=== PATIENT | female | born 1955 | race Caucasian/White ===

== ENCOUNTER 2019-08-02 18:08 | Inpatient (IN) | payer OTHER ==
[~2019-08-02 18:08] MED LIST: Iopamidol-370 76% 500 ML 1 ML ONE
--- NOTE | 2019-08-02 18:34 | RAD ---
XR Chest 1 View Portable History: Coughing up blood Comparison: None. Findings: Abnormal nodules throughout the lungs, largest in the right lower lobe. No pneumothorax. No effusion. Cardiac silhouette appears normal. The pulmonary arteries are dilated. No acute osseous abnormality. Impression: Multifocal nodules in the lungs concerning for metastatic disease. Septic emboli and conf luent pneumonia is also possibility, although felt slightly less likely. Nonemergent CT chest with contrast recommended.
[2019-08-02] MEDS ORDERED: Albuterol Sulfate 2.5 mg/0.5 ml Neb ONE (18:58)
[2019-08-02] MEDS ORDERED: Morphine 4 MG/ML VIAL ONE (19:29)
[2019-08-02 19:32] LABS: #Basophils 0.1 thou/uL (0.0-0.2); #Lymphocytes 1.6 thou/uL (1.20-3.40); #Monocytes 0.9 thou/uL (0.11-0.59); #Neutrophils 7.7 thou/uL (1.40-6.50); %Basophils 0.6 % (0.0-1.0); %Eosinophils 0.5 % (0.0-10.0); %Lymphocytes 15.8 % (21.0-51.0); %Monocytes 8.8 % (0.0-10.0); %Neutrophils 74.4 % (42.0-75.0); Hemoglobin 14.1 g/dL (12.0-16.0); Mean Corpuscular HGB CONC 33.7 g/dL (32.0-36.0); Mean Corpuscular Hemoglobin 31.9 pg (27.0-31.0); Mean Corpuscular Volume 94.8 fL (78.0-98.0); Mean Platelet Volume 10.1 fL (7.4-10.4); Platelet Count 125 thou/uL (130-400); RBC Distribution Width 12.1 % (11.5-14.5); Red Blood Cell (RBC) Count 4.43 mill/uL (4.20-5.40); White Blood Cell (WBC) Count 10.3 thou/uL (4.8-10.8)
[2019-08-02] MEDS ORDERED: diphenhydrAMINE 50 MG/ML VIAL ONE (20:34)
[2019-08-02] MEDS ORDERED: methylPREDNISolone Sod Succ/PF 125 MG/2 ML VIAL ONE (20:34)
[2019-08-02] MEDS ORDERED: Famotidine/PF 20 mg/2ml Vial ONE (20:34)
[2019-08-02 20:44] LABS: ALT (SGPT) 20 U/L (8-55); AST (SGOT) 12 U/L (5-34); Albumin 3.7 g/dL (3.4-4.8); Alkaline Phosphatase 70 U/L (40-110); Anion Gap 11 mmol/L (10-20); BUN (Urea Nitrogen) 8 mg/dL (9.8-20.1); Bilirubin, Total 0.8 mg/dL (0.2-1.2); Calc. Creatinine Clearance 0 mL/min (70-130); Calcium 8.4 mg/dL (7.8-10.44); Carbon Dioxide 24 mmol/L (23-31); Chloride 107 mmol/L (98-107); Estimated GFR-MDRD 80; Globulin 2.7 g/dL (2.4-3.5); Glucose 192 mg/dL (80-115); Potassium 3.7 mmol/L (3.5-5.1); Protein, Total 6.4 g/dL (6.0-8.3); Sodium 138 mmol/L (136-145)
--- NOTE | 2019-08-02 22:01 | CT ---
CT Neck Chest Abd Pelvis W Con History: Cough Comparison: Chest radiograph same day Findings: No abnormal mucosal hyperenhancement of the neck. Normal cervical spine alignment with mode rate degenerative changes. Mandible is intact. No cervical adenopathy. Parotid glands and submandibular glands are intact. Small supraclavicular lymph nodes. Multifocal consolidation which does not have as greatest confluenc e on the CT exam as it did on the radiograph. Aortic contour is nonaneurysmal. Liver, pancreas are unremarkable. There is probable cholelithiasis. Splenic size is upper limits of normal. No hydronephrosis. No dilated loops of large or small bowel. The appendix is visualized and is normal. No retroperitonea l periaortic adenopathy. No acute osseous abnormality. Sternum and manubrium are intact. No displaced rib fracture. Clavicles are intact. Impression: 1. No evidence for acute pharyngitis or peritonsillar abscess. 2. Findings of multifocal bronchopneumonia. Follow-up radiographs after treatment recommended. 3. No acute inflammatory process within the abdomen or pelvis. 4. Mild splenomegaly. 5. Small renal hypodensities too small to fully characterize although statistically likely cysts.
[2019-08-02] MEDS ORDERED: Cefepime 2 GM VIAL ONE (22:52)
[2019-08-02 23:05] LABS: Lactic Acid 1.2 mmol/L (0.5-2.2)
[2019-08-03] MEDS ORDERED: HYDROcodone/Acetaminophen 5/325 mg Tablet PO PRN ×2 (00:51)
[2019-08-03] MEDS ORDERED: Ondansetron ODT 4 MG TAB SL PRN (00:51)
[2019-08-03] MEDS ORDERED: Acetaminophen 325 MG TAB PO PRN (00:51)
[2019-08-03] MEDS ORDERED: Sodium Chloride 0.9% 1,000 ML IV SCH (00:51)
[2019-08-03] MEDS ORDERED: Ondansetron PF 4 MG/2 ML Vial IVP PRN (00:51)
[2019-08-03] MEDS ORDERED: Morphine 4 MG/ML VIAL SLOW IVP PRN (00:53)
[2019-08-03 01:08] VITALS: BMI 37.3
[2019-08-03] MEDS ORDERED: Dextrose 50% Abboject 50 ML SYRINGE IVP PRN (08:14)
[2019-08-03] MEDS ORDERED: Ondansetron PF 4 MG/2 ML Vial SLOW IVP PRN (08:14)
[2019-08-03] MEDS ORDERED: Dextrose 5% in Water 1,000 ML IV PRN (08:14)
[2019-08-03] MEDS ORDERED: Zolpidem Tartrate 5 MG TAB PO PRN (08:20)
[2019-08-03] MEDS ORDERED: Levothyroxine Sodium 100 MCG TAB PO ONE (08:30)
[2019-08-03] MEDS ORDERED: Cefepime 2 GM in Sodium Chloride 0.9% 100 ML IVPB SCH (09:00)
--- NOTE | 2019-08-03 09:14 | HP ---
CHIEF COMPLAINT ON ADMISSION: Multifocal pneumonia. HISTORY OF PRESENT ILLNESS: The patient is a 64-year-old female, who states that for approximately 4 days, she has had increasing cough, it became productive in the last 24 hours, producing bloody phlegm. She also had sore throat, ear pain, and headache associated with this. The symptoms steadily worsened until finally she came to the emergency room on the day of admission. When she walked in the ER, her pain was rated at 7/10. Her chest x-ray initially showed what might have been metastatic disease, but a CT scan was then followed up, which clarified that this was indeed just a multifocal bronchopneumonia without any inflammatory process. There was mild splenomegaly noted. A small renal hypodensities that appeared to be cysts, otherwise unremarkable for metastatic disease. The patient had blood cultures taken. IV antibiotics begun, and Dr. Lutz was contacted for admission. PAST MEDICAL HISTORY: Includes [id number] diabetes mellitus, hypertension, dyslipidemia, hypothyroidism, and osteopenia. PAST SURGICAL HISTORY: Includes section x3 and hysterectomy. PSYCHIATRIC HISTORY: Has been significant for depression in the past. SOCIAL HISTORY: She is . Does not smoke or have any significant alcohol or drug abuse history. ALLERGIES: SHE IS ALLERGIC TO IODINE AND PENICILLINS. MEDICATIONS: On admission include; 1. Fosamax 70 mg weekly. 2. Amlodipine/benazepril 10/20 once a day. 3. Aspirin 81 mg enteric-coated daily. 4. Estradiol 1 mg daily. 5. Glyburide 5 mg b.i.d. 6. Metformin 1000 mg b.i.d. 7. Crestor 10 mg at bedtime. 8. Zoloft 100 mg daily. 9. Synthroid 100 mcg daily. REVIEW OF SYSTEMS: CONSTITUTIONAL: She admits to fever, chills, cough, and malaise. HEENT: She has had severe ear pain with head congestion and drainage and headache. CHEST: Significant for dyspnea and cough. CARDIOVASCULAR: Denies palpitations or chest pain per se. ABDOMEN: Denies nausea, vomiting, or diarrhea. GENITOURINARY: Denies blood in urine or stool or painful urination, frequency, or urgency. MUSCULOSKELETAL: Has general aches and pains, but no new areas of heat, erythema, joint pain, or muscle pain. SKIN: No new rashes or lesions. NEUROLOGIC: Significant for headaches, but denies blurred vision, trouble with mentation. PSYCHIATRICAL: Denies any active ongoing depression at this time. PHYSICAL EXAMINATION: VITAL SIGNS: At the time of admission, blood pressure 156/67, pulse 114, temperature 99.7, respirations 20, pain scale 7/10, and O2 saturation 95% on room air. GENERAL: This is an obese female, alert, oriented, and cooperative. HEENT: Normocephalic, atraumatic. Pupils are equal, round, and reactive to light. Extraocular muscles are intact. Nares and pharynx are clear. NECK: Supple. Trachea midline. CHEST: With basilar rales on the right. Left is clear. HEART: Regular rate and rhythm without murmur. BREASTS: Deferred. ABDOMEN: Soft, nontender without hepatosplenomegaly. GENITOURINARY: Deferred. EXTREMITIES: Without clubbing, cyanosis, or edema. Normal range of motion present. Symmetrical muscular tone development noted. SKIN: Without significant lesions. NEUROLOGIC: Cranial nerves are intact. Sensory exam is grossly intact. Mental status is nonfocal. Gait and cerebellar function untested at this time. LABORATORY DATA: Lab work thus far shows WBCs at 10.3, hemoglobin 14.1 with hematocrit 42, and platelets at 125. Her sodium is 138, potassium 3.7, chloride 107, CO2 of 24, BUN 8, and creatinine 0.73 with GFR of 80. Glucose at that time was 192. Lactic acid has gone from 2.8 down to 1.2. Calcium 8.4. Liver functions normal. Troponins unremarkable. Urinalysis is pending. IMAGING DATA: Chest x-ray concerning for multifocal and metastatic disease. CT scan clarified that it is bronchopneumonia without any sign of metastatic illness. ASSESSMENT: 1. Bronchopneumonia. 2. Tqm-uhtwjzr-xegaomhrv diabetes. 3. Hypertension. PLAN: Will be continued IV therapy, scheduled neb treatments, mucolytics, sliding-scale insulin to cover any elevations what her routine medications deliver. Serial re-evaluation and because she is placed in IMCU for the multifocal pneumonia and Pulmonology consult is automatic. Job ID: [id number]
[2019-08-03] MEDS: Aspirin 81 mg Enteric Coated Tablet PO SCH (09:40)
[2019-08-03] MEDS: guaiFENesin ER 600 MG TAB PO SCH ×2 (09:40→21:08)
[2019-08-03] MEDS: Estradiol 1 MG TAB PO SCH (09:41)
[2019-08-03] MEDS: Lisinopril 20 MG TAB PO SCH (09:41)
[2019-08-03] MEDS: Amlodipine 10 MG TAB PO SCH (09:41)
[2019-08-03] MEDS ORDERED: predniSONE 20 MG TAB PO SCH (13:15)
--- NOTE | 2019-08-03 13:53 | CON ---
DATE OF CONSULTATION: 08/03/2019 SERVICE: Pulmonary Medicine. REASON FOR CONSULTATION: Respiratory failure. HISTORY OF PRESENT ILLNESS: The patient is a 64-year-old white female with past medical history significant for essentially nothing. She was in her usual state of health until Wednesday of last week. Over the last 5 days, she suffered a viral prodrome. She indicates having an achy muscles in the shoulders, cough, congestion, horrendous sore throat, a little bit of white to pale yellow phlegm, low-grade temperatures, chills, myalgia, and shaking chills. Ultimately, as the symptoms were severe enough and she started having difficulty breathing, she also started coughing up some blood, which prompted her presentation to the emergency department. Since being in the hospital, she was given antibiotics, steroids, and nebulized medications and overnight, she has made a profound improvement in symptoms. She denies any overnight events. Otherwise, she feels like she is returning to her usual state of health, but does not quite feel comfortable going home yet. She does not have any known lung problems other than intermittent asthma. The only time she ever has problems with asthma is when she catches a virus. Outside of that, she does not have any true allergic-type symptoms with sneezing, itchy, watery eyes, frequent drainage from the nose, or atopy. She does not develop any rashes. She is not currently taking anything for her asthma. She is on a CPAP device for her sleep apnea. She has been without it for one evening. PAST MEDICAL HISTORY: 1. Type 2 diabetes mellitus. 2. Hypertension. 3. Dyslipidemia. 4. Hypothyroidism. 5. Osteopenia. 6. Obstructive sleep apnea. PAST SURGICAL HISTORY: 1. section x3. 2. Hysterectomy. SOCIAL HISTORY: Negative for alcohol, tobacco, or illicit drug use. She is a lifelong nonsmoker and has no exposure to chemicals, dust, asbestos, or tuberculosis. She is currently . FAMILY HISTORY: Noncontributory. ALLERGIES: PENICILLIN, IODINE. MEDICATIONS: List of her inpatient medications was reviewed. No specific updates were made at this time. REVIEW OF SYSTEMS: General, head, ears, eyes, nose, throat, cardiovascular, respiratory, GI, , musculoskeletal, neurologic, and skin is negative except as mentioned in the HPI. PHYSICAL EXAMINATION: VITAL SIGNS: Afebrile; pulse 88; blood pressure 182/92; respirations 15; and saturation 100%, currently on 2 L nasal cannula. GENERAL: The patient is awake and alert, in no apparent distress. LUNGS: Excellent air entry without any prolonged expiratory phase or wheezing present. HEART: Normal rate. Regular. ABDOMEN: Soft, nontender, and nondistended. Bowel sounds are positive. MUSCULOSKELETAL: No cyanosis or clubbing. No pitting in bilateral lower extremities. NEUROLOGIC: Grossly nonfocal. LABORATORY DATA: CBC is completely unremarkable other than a platelet count of 125,000. Differential remains unremarkable. Basic metabolic profile and liver function studies, lactate are negative. The original lactate was 2.8, but abruptly resolved. Blood cultures x2, influenza A and B, and group A strep are negative. IMAGING DATA: CT of the neck, chest, abdomen, and pelvis demonstrates no evidence of pharyngitis or peritonsillar abscess. Multifocal bronchopulmonary pneumonia is present. Small renal hypodensities are too small to characterize. Mild splenomegaly is noted. ASSESSMENT: 1. Acute hypoxic respiratory failure, resolved. 2. Hemoptysis, resolved. 3. Acute bronchitis, improving. 4. Community-acquired pneumonia, possible. DISCUSSION AND PLAN: My suspicion is that this is all a viral issue. That being said, I cannot prove there is no bacterial infection of the lung. As such, a 5- day course of antibiotics are reasonable. Cefepime will be discontinued. The levofloxacin should be more than adequate to cover what we need to. I will do a respiratory virus panel to see whether or not the patient has a virus. If she is doing well until tomorrow, she can be converted over to p.o. medications and considered for discharge. I see nothing on the CT of the chest that makes me concerned for a secondary cause of the hemoptysis other than the bronchitis. I do not see any lung masses, and careful inspection of the trachea and mainstem bronchi did not demonstrate any obvious lesions. She understands that if at any point in the future she has a recurrence of hemoptysis when she is well, she is to notify my office immediately. Pulmonary/Critical Care will continue to follow for the time being. 70 minutes have been devoted to this patient in various activities. I personally reviewed all imaging studies and laboratory data noted within this document. For fifty percent of this time, I was interacting with the patient at the bedside or coordinating care with the care team. For the remainder of the time I was immediately available to the patient in the hospital unit. Job ID: [id number] MTDD
[2019-08-03] MEDS: Insulin Regular 300 UNITS/3 ML VIAL SC PRN ×3 (14:52→21:09)
[2019-08-03] MEDS: glyBURIDE 5 MG TAB PO SCH (16:33)
[2019-08-03] MEDS: metFORMIN 500 MG TAB PO SCH (16:33)
[2019-08-03] MEDS ORDERED: FLU VACC QS2019-20(6MOS UP)/PF 60 MCG/0.5 ML SYRINGE IM ONE (21:00)
[2019-08-03] MEDS: Rosuvastatin 10 MG TAB PO SCH (21:08)
[2019-08-04 04:53] LABS: #Lymphocytes 1.7 thou/uL (1.20-3.40); #Monocytes 0.7 thou/uL (0.11-0.59); %Basophils 0.1 % (0.0-1.0); %Eosinophils 0.1 % (0.0-10.0); %Lymphocytes 16.7 % (21.0-51.0); %Monocytes 6.6 % (0.0-10.0); %Neutrophils 76.5 % (42.0-75.0); Hemoglobin 11.6 g/dL (12.0-16.0); Mean Corpuscular HGB CONC 31.6 g/dL (32.0-36.0); Mean Corpuscular Volume 94.9 fL (78.0-98.0); Platelet Count 129 thou/uL (130-400); RBC Distribution Width 11.7 % (11.5-14.5); Red Blood Cell (RBC) Count 3.85 mill/uL (4.20-5.40); White Blood Cell (WBC) Count 10.4 thou/uL (4.8-10.8)
[2019-08-04 05:14] LABS: Anion Gap 13 mmol/L (10-20); BUN (Urea Nitrogen) 15 mg/dL (9.8-20.1); Calc. Creatinine Clearance 138 mL/min (70-130); Calcium 8.4 mg/dL (7.8-10.44); Carbon Dioxide 24 mmol/L (23-31); Cardiac Risk 3.2 (Less than 4.5); Chloride 109 mmol/L (98-107); Cholesterol 101 mg/dl (< 200 Desired); Estimated GFR-MDRD 87; Glucose 214 mg/dL (80-115); HDL Cholesterol 32 mg/dL (>60 Neg Risk); LDL Cholesterol, Calculated 50 mg/dL; Sodium 142 mmol/L (136-145); Triglycerides 97 mg/dL (Less than 150)
[2019-08-04] MEDS: Insulin Regular 300 UNITS/3 ML VIAL SC PRN ×3 (05:29→16:17)
[2019-08-04] MEDS: Levothyroxine Sodium 100 MCG TAB PO SCH (05:29)
[2019-08-04] MEDS: Estradiol 1 MG TAB PO SCH (08:46)
[2019-08-04] MEDS: Amlodipine 10 MG TAB PO SCH (08:46)
[2019-08-04] MEDS: metFORMIN 500 MG TAB PO SCH ×2 (08:47→16:18)
[2019-08-04] MEDS: guaiFENesin ER 600 MG TAB PO SCH ×2 (08:47→20:18)
[2019-08-04] MEDS: glyBURIDE 5 MG TAB PO SCH ×2 (08:48→16:19)
[2019-08-04] MEDS: predniSONE 20 MG TAB PO SCH (08:48)
[2019-08-04] MEDS: Aspirin 81 mg Enteric Coated Tablet PO SCH (08:48)
[2019-08-04] MEDS: Insulin Glargine 30 UNITS in Pre-Filled Syringe 1 EACH SC SCH (08:49)
[2019-08-04] MEDS: Lisinopril 20 MG TAB PO SCH (08:49)
--- NOTE | 2019-08-04 11:36 | PRG ---
DATE OF SERVICE: 08/04/2019 SERVICE: Pulmonary Medicine. INTERVAL HISTORY: The patient had a very poor sleep last night secondary to cough. That being said, her cough seems to be little less productive. She ended up not bringing her CPAP in last night. Otherwise, there has been no interval change to her condition. PHYSICAL EXAMINATION: VITAL SIGNS: Afebrile, pulse 92, blood pressure 128/60, respirations 16, and saturation 95% on room air. GENERAL: The patient is awake and alert, in no apparent distress. LUNGS: Wonderful air entry with no prolonged expiratory phase or wheezing present. HEART: Normal rate. Regular. ABDOMEN: Soft, nontender, and nondistended. Bowel sounds are positive. MUSCULOSKELETAL: No cyanosis or clubbing. There is no pitting in the bilateral lower extremities. NEUROLOGIC: Grossly nonfocal. LABORATORY DATA: CBC is essentially unremarkable except for hemoglobin of 11.6 and platelets of 129. Basic metabolic profile is unremarkable. TSH is barely below the assay limit of normal. Hemoglobin A1c 7.0. Respiratory virus panel is unremarkable. Blood cultures x2, strep culture, influenza A and B are negative. ASSESSMENT: 1. Acute hypoxic respiratory failure, resolved. 2. Hemoptysis, resolved. 3. Acute bronchitis, resolving. 4. Community-acquired pneumonia. DISCUSSION AND PLAN: The patient is doing fine from respiratory standpoint. She is currently afebrile. She can be converted over to p.o. antibiotics and a 5-day course can be completed. At this point, she remains stable for transition out of the hospital. She will require a repeat chest x-ray in 4 to 6 weeks in the outpatient setting to verify the infiltrates have resolved. I have encouraged her to use the CPAP if she remains in the hospital. At this point, Pulmonary will follow intermittently. If she gets in trouble through the weekend, please give Dr. Holt a phone call, but if all goes well, she will likely be discharged through the weekend. If she remains in-house on Wednesday, I will continue to follow. Job ID: [id number]
[2019-08-04] MEDS: Rosuvastatin 10 MG TAB PO SCH (20:18)
[2019-08-04] MEDS: Benzonatate 100 MG CAP PO PRN (20:18)
[2019-08-05] MEDS: Benzonatate 100 MG CAP PO PRN ×2 (04:18→11:27)
[2019-08-05] MEDS: Levothyroxine Sodium 100 MCG TAB PO SCH (05:26)
[2019-08-05] MEDS ORDERED: Acetaminophen 325 MG TAB PO PRN (06:47)
[2019-08-05] MEDS: predniSONE 20 MG TAB PO SCH (07:58)
[2019-08-05] MEDS: Aspirin 81 mg Enteric Coated Tablet PO SCH (09:34)
[2019-08-05] MEDS: glyBURIDE 5 MG TAB PO SCH (09:34)
[2019-08-05] MEDS: Amlodipine 10 MG TAB PO SCH (09:34)
[2019-08-05] MEDS: guaiFENesin ER 600 MG TAB PO SCH (09:34)
[2019-08-05] MEDS: metFORMIN 500 MG TAB PO SCH (09:34)
[2019-08-05] MEDS: Estradiol 1 MG TAB PO SCH (09:35)
[2019-08-05] MEDS: Insulin Glargine 30 UNITS in Pre-Filled Syringe 1 EACH SC SCH (09:35)
[2019-08-05] MEDS: Lisinopril 20 MG TAB PO SCH (09:35)
[2019-08-05 11:05] VITALS: BP 141/63; TEMP 98.1
[2019-08-05] MEDS ORDERED: Fioricet 325/50/40 mg Tablet PO PRN (11:05)
[2019-08-05] MEDS: Insulin Regular 300 UNITS/3 ML VIAL SC PRN (11:27)
--- NOTE | 2019-08-05 18:29 | PDOC.HOSPP ---
- Subjective Encounter Date: 08/05/19 Encounter Time: 08:00 Subjective: Pt seen for followup re: acute hypoxic respiratory failure. Feels better. - Objective Vital Signs & Weight: Vital Signs (12 hours) Temp Pulse Resp BP BP Pulse Ox 08/05/19 14:11 84 16 98 08/05/19 11:03 98.1 F 92 18 141/63 H 95 08/05/19 10:27 87 14 97 08/05/19 09:35 140/64 08/05/19 09:34 98 140/64 08/05/19 07:55 93 L 08/05/19 07:54 98.9 F 98 20 140/64 93 L 08/05/19 07:42 90 14 96 Weight Weight 230 lb 14.4 oz Most Recent Monitor Data Heart Rate from ECG 72 NIBP 182/92 NIBP BP-Mean 122 Respiration from ECG 15 SpO2 100 I&O: 08/04/19 08/05/19 08/06/19 06:59 06:59 06:59 Intake Total 730 1800 540 Balance 730 1800 540 Result Diagrams: 08/04/19 04:31 08/04/19 04:31 Additional Labs: Accuchecks 08/05/19 08/05/19 08/04/19 10:59 05:21 20:24 POC Glucose 246 H 92 206 H Labs and MARs reviewed by ks Hospitalist ROS - Review of Systems Respiratory: reports: cough, sputum Cardiovascular: denies: chest pain, palpitations, orthopnea, paroxysmal noc. dyspnea, edema, light headedness Gastrointestinal: denies: nausea, vomiting, abdominal pain, diarrhea, constipation, melena, hematochezia - Exam General - other findings: Obese Eye: anicteric sclera ENT: moist mucosa Neck: supple, no lymphadenopathy Heart: RRR Respiratory: wheezes Gastrointestinal: soft, non-tender Psychiatric: normal affect, normal behavior Hosp A/P (1) Acute respiratory failure with hypoxia Code(s): J96.01 - ACUTE RESPIRATORY FAILURE WITH HYPOXIA Status: Acute (2) Acute bronchitis Code(s): J20.9 - ACUTE BRONCHITIS, UNSPECIFIED Status: Acute (3) Pneumonia Code(s): J18.9 - PNEUMONIA, UNSPECIFIED ORGANISM Status: Acute - Plan Pt improving with oxygen, steroids, bronchodilators and antibiotics. Home later today.
--- NOTE | 2019-08-05 21:03 | DIS ---
DATE OF ADMISSION: 08/02/2019 DATE OF DISCHARGE: 08/05/2019 PRIMARY CARE PROVIDER: Ramiro Lutz MD DISCHARGE DIAGNOSES: 1. Acute hypoxic respiratory failure. 2. Acute bronchitis. 3. Multifocal pneumonia. 4. Hemoptysis secondary to bronchitis. CONDITION OF PATIENT ON THE DAY OF DISCHARGE: Stable. I assessed Ms. Orosco on the day of discharge. She denies any chest pain or shortness of breath. Cough is better. Vital signs are stable. S1 and S2 are heard, regular. Lungs are clear to auscultation bilaterally. CONSULTATIONS DURING THIS HOSPITALIZATION: Pulmonary and Critical Care Medicine, Dr. Krystian Winn. POST ACUTE CARE FOLLOWUP: With primary care provider in 3 days' time. DISCHARGE MEDICATIONS: She is being discharged on: 1. Levofloxacin 750 mg daily, 4 more doses. 2. Prednisone 40 mg daily for 2 more days. 3. Tessalon 100 mg 3 times a day as needed. Otherwise, no change was made to her pre-admission home medications as dictated by Dr. Lutz in his history and physical note dated August 03, 2019. DIET: Diabetic and heart healthy. ACTIVITY: As tolerated. HOSPITAL COURSE: Ms. Orosco is a pleasant 64-year-old lady, who was admitted to [facility] on August 02, 2019, for acute hypoxic respiratory failure. Please refer to Dr. Lutz' history and physical note dated August 03, 2019, for further details. CT scan of the neck, chest, abdomen and pelvis was done because of concern for metastatic disease per x-ray interpretation. There was no evidence for acute pharyngitis or peritonsillar abscess. She had findings of multifocal bronchopneumonia, mild splenomegaly, small renal hypodensities, too small to fully characterized, though statistically likely cyst. She improved clinically with antibiotics, steroids, and bronchodilators. She is being discharged home in a stable condition. Many thanks for allowing me to participate in your patient's care. Please feel free to contact me with any questions or concerns. DISCHARGE DESTINATION: Home. TIME SPENT: Total amount of time spent coordinating this discharge: 31 minutes. Job ID: [id number]
== END 2019-08-05 15:41 | disposition home or self-care (01) | DRG 193 ==
LOC: ERS 18:08 → IMCU/EMU 23:07 → OBSVTOIN 23:07 → ONC 08-03 15:46
PROVIDERS: ADMIT Specialist; ATTEND Specialist
DX: J18.9 Pneumonia, unspecified organism (principal); J96.01 Acute respiratory failure with hypoxia; R04.2 Hemoptysis; J20.9 Acute bronchitis, unspecified; E11.9 Type 2 diabetes mellitus without complications; E03.9 Hypothyroidism, unspecified; E78.5 Hyperlipidemia, unspecified; I10 Essential (primary) hypertension; F32.9 Major depressive disorder, single episode, unspecified; Z88.0 Allergy status to penicillin; Z90.710 Acquired absence of both cervix and uterus; Z88.8 Allergy status to other drugs, medicaments and biological substances
CPT/HCPCS: 36415; 36416; 70491; 71045; 71260; 74177; 80048; 80053; 80061; 83036; 83605; 84443; 84484; 85025; 87040; 87081; 87430; 87633; 87804; 93005; 94640; 96361; 96365; 96367; 96375; J0692; J1200; J1815; J1956; J2270; J2930; J3490; J7512; J7611; J7620; Q9967; S0028

== ENCOUNTER 2020-07-07 19:07 | Emergency (ER) | payer BC, MEDICARE ==
--- NOTE | 2020-07-07 20:18 | RAD ---
RADIOGRAPH CHEST 1 VIEW: DATE: 07-07-2020 TIME: 7:47 P.M. HISTORY: 64-year-old Covid 19 positive female with fever. FINDINGS: There are no air space densities, pulmonary edema, pneumothorax, or cardiomegaly. The lateral costop hrenic angles are sharp. There is small short linear density at the left mid/lower lung zone consiste nt with scar or subsegmental atelectasis. IMPRESSION: No acute cardiopulmonary findings. seng POS: JIN
== END 2020-07-07 20:56 | disposition home or self-care (01) ==
LOC: ERS 19:07
DX: U07.1 COVID-19 (principal); E11.9 Type 2 diabetes mellitus without complications; E03.9 Hypothyroidism, unspecified; E78.5 Hyperlipidemia, unspecified; I10 Essential (primary) hypertension; Z79.82 Long term (current) use of aspirin; Z79.84 Long term (current) use of oral hypoglycemic drugs; Z79.899 Other long term (current) drug therapy
CPT/HCPCS: 71045

== ENCOUNTER 2024-04-28 13:50 | Outpatient (CLI) | payer MEDICARE | END 2024-04-28 13:51 | disposition home or self-care (01) | LOC: BICRAD 13:50 | PROVIDERS: ATTEND Specialist | DX: J18.9 Pneumonia, unspecified organism (principal) | CPT/HCPCS: 71046 ==